=== PATIENT | male | born 1980 | race Caucasian/White ===

== ENCOUNTER 2024-02-16 15:27 | Outpatient (AMB) | payer OTHER, SELFPAY ==
--- NOTE | 2024-02-16 15:27 | A.OFFVIS_ITS ---
Vital Signs 02/16/24 15:34 Height 5 ft 6 in Weight 138 lb BMI 22.3 BP 109/69 Blood Pressure Location Rt brachial Position Sitting Pulse 64 Intake Visit Reasons: Unilateral Inguinal Hernia Intake Note: This patient was referred by [facility] care for an assessment for unilateral Inguinal Hernia. Patient c/o; Onset over 6 weeks, reports mild pain right groin, reports bulge, reports swelling. 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 He has noticed this reducible mass on his right groin on and off for about 8 weeks. He describes associated pain and discomfort. He says that the mass seems much bigger whenever his straining or doing a lot of exertion. The mass reduces on its own He denies GI complaints. [facility] Medical History (Updated 02/16/24 @ 15:58 by Jesús Brooks MD) Right inguinal hernia Surgical History No pertinent past surgical history Social History Alcohol intake: never Patient Tobacco Use Status: Never used Tobacco Review of Systems Const Denies chills and Denies fever(s) Card Denies chest pain, Denies dyspnea and Denies dyspnea on exertion Resp Denies cough, Denies dyspnea and Denies dyspnea on exertion GI Denies hematochezia and Denies change in bowel habits Denies hematuria and Denies difficulty urinating Musc Denies back pain and Denies limited range of motion Neuro Denies focal weakness and Denies convulsions Psych Denies depression and Denies mood swings Physical Exam Vital Signs: Last Vital Signs Pulse 64 02/16/24 15:34 BP 109/69 02/16/24 15:34 BMI result Body Mass Index 22.3 Const General: comfortable and no acute distress Orientation/consciousness: patient oriented x3 Neck Neck: Yes no lymphadenopathy Resp Auscultation: clear to auscultation bilaterally Cardio Rhythm: regular rhythm GI Other: Right inguinal hernia, seen with Valsalva, easily reducible Palpation (GI): Soft to palpation, nontender and no guarding Neuro General: patient oriented x3 Assessment & Plan Assessment & Plan (1) Right inguinal hernia: Code(s): K40.90 - Unilateral inguinal hernia, without obstruction or gangrene, not specified as recurrent Category: Medical Plan: He has a reducible right inguinal hernia. He describes symptoms with this and wants to proceed with repair. I had a long discussion with him about the technique of repair with mesh. I explained the risks including but not limited to bleeding, infection, injury to bowel, vas deferens and testicle, recurrence, postop pain, as well as the benefits and alternatives. I reviewed with him what to expect postoperatively He understands and wants to proceed. His was with him during the visit Coding Level of Care Code New Pt Level 3 (38222) Diagnoses Right inguinal hernia K40.90
[2024-02-16 15:34] VITALS: BP 109/69; PULSE 64; BMI 22.3
== END 2024-02-16 15:57 | disposition home or self-care (01) ==
PROVIDERS: Visit Provider Surgery
DX: K40.90 Unilateral inguinal hernia, without obstruction or gangrene, not specified as recurrent (principal)
CPT/HCPCS: 99204

== ENCOUNTER → 2024-02-16 15:27 | Outpatient (BNVA) | payer OTHER, SELFPAY | PROVIDERS: Visit Provider Surgery | DX: K40.90 Unilateral inguinal hernia, without obstruction or gangrene, not specified as recurrent (principal) | CPT/HCPCS: 99202 ==

== ENCOUNTER 2024-03-30 09:25 | Day surgery (SDC) | payer OTHER, SELFPAY ==
[2024-03-26 12:36] VITALS: BMI 22.3
--- NOTE | 2024-03-29 14:13 | HO.ANESPROP2 ---
Documented by User: Johanna Hayes NP 03/29/24 14:13 HPI - Anesthesia Eval Consult details Narrative: 44yo M for Right Repair Hernia Inguinal Reducible with mesh PMFSH Active Problems Active Problems: All Active Problems Right inguinal hernia (Acute) Past Medical History Medical History Right inguinal hernia Surgical History Surgical History Hx of inguinal hernia surgery H/O hand surgery Social History Social History Alcohol intake: never Patient Tobacco Use Status: Former Tobacco user Use of substances other than those prescribed or required for medical reasons: No Are you DNR?: No Advance Directives: No Advance Directives Information Provided: Yes Meds Allergies Allergy/AdvReac Type Severity Reaction Status Date / Time No Known Allergies Allergy Verified 02/16/24 15:37 Exam Height,Weight and Vital Signs: Height 5 ft 6 in Weight 62.596 kg Assessment and Plan Assessment Anesthesia Assessment: Chart Reviewed Documented by User: Georgie Jernigan MD 03/30/24 12:44 PMFSH Past Medical History Medical History Right inguinal hernia Family History Family history of problems with anesthesia: No Surgical History Surgical History Hx of inguinal hernia surgery H/O hand surgery History of Problems with Anesthesia: No Social History Social History Alcohol intake: never Patient Tobacco Use Status: Former Tobacco user Use of substances other than those prescribed or required for medical reasons: No Are you DNR?: No Advance Directives: No Advance Directives Information Provided: Yes Meds Allergies Allergy/AdvReac Type Severity Reaction Status Date / Time No Known Allergies Allergy Verified 02/16/24 15:37 Exam Airway Mallampati Class: II TM Dist: >3cm Neck ROM: Full Heart: rrr Lungs: cta Assessment and Plan Assessment Anesthesia Assessment: Anesthesia Plan Discussed Final Anesthetic Review Family History of Problems with Anesthesia: No History of Problems with Anesthesia: No NPO: Yes ASA Class: I Final Preanesthetic Review: No Changes in Pt Med Stat, Meds/Allgs Chart Reviewed, Consent Obtained/Reviewed and Anes Risks/Benef Reviewed Patient Risk: Low Procedure Risk: Low Anesthetic Plan Anesthetic Plan: GA Disposition: Standard PACU
[2024-03-30 09:48] VITALS: BMI 21.7
[2024-03-30 09:59] VITALS: BP 103/74; PULSE 58; RESP 16; TEMP 36.8; O2SAT 98
[2024-03-30] MEDS: Lactated Ringers 1,000 ML 100 ML IVCONT (10:15)
--- NOTE | 2024-03-30 12:06 | MHC.SHP ---
Pre-Procedural Eval Section A - 24 Hr Update-Section A only Date of Service: 03/30/24 Section B - Complete if H&P > 30 days Chief Complaint: Unilateral inguinal hernia, without obstruction Details of Present Illness: Reducible right inguinal hernia for more than 2 months Relevant Family History (Specify if Yes): No Present Medications: see Short Stay Collaborative assessment Medical History: No relevant PMH Allergies: Allergies Allergy/AdvReac Type Severity Reaction Status Date / Time No Known Allergies Allergy Verified 02/16/24 15:37 Review of Systems Sugical H&P ROS: Negative: Constitution, Cardiovascular, Respiratory, Neurological, Psychiatric, Hem-Onc, Allergic/Immunologic, Gastrointestinal, Genitourinary, Musculoskeletal, Integumentary, Endocrine and Eyes/Ears/Nose/Throat Exam Surgical H&P Exam: Normal: HEENT, Normal: Heart, Normal: Lungs, Normal: Extremities, Normal: Skin and Normal: Neurological and Significant Findings: Abdomen (Reducible right inguinal hernia) Plan Diagnosis/Plan: Unchanged I have reviewed the history and physical and performed a pertinent physical examination on my patient. No changes have occurred unless specified. Time Spent With Patient Time: Total time managing care of this patient today ____ minutes.
--- NOTE | 2024-03-30 13:22 | W.PM.OPN ---
Operative Note Operative Note Date of Service: 03/30/24 Narrative: Preop diagnosis: Right inguinal hernia, reducible Postop diagnosis: Right inguinal hernia, reducible, direct Procedure: Repair of a right inguinal hernia with mesh Surgeon: Jesús Brooks MD mobile unit assistant: WAGNER Perez The patient is a 44-year-old male with a reducible right inguinal hernia. He wanted to proceed with repair. He understood the technique of the procedure as well as the risks, benefits, and alternatives. He was brought to the operating room. He was placed supine under general anesthesia via laryngeal mask airway. The right groin was prepped and draped in the usual sterile fashion. A surgical time-out was done. The patient received cefazolin 2 g IV preoperatively I infiltrated the planned line of incision with lidocaine 1%. I made a short incision on the skin along an imaginary line from the anterior superior explained to the pubic ramus using blade 15. This was carried down through the full-thickness of the skin and subcutaneous fat until external oblique aponeurosis was visualized. I bluntly dissected the aponeurosis with gauze and visualize the external ring. This was further defined. I made an incision on the aponeurosis using blade 15. I extended this inferomedially to connect with the external ring. Hemostats were placed on the divided edges of the aponeurosis. I bluntly dissected the underside of the aponeurosis to create a pocket for the mesh. I then proceeded to do blunt dissection of the spermatic cord and its contents with my finger until was able to pass a Merline drain around this. The Westpoint drain was used for retraction. Examination of the spermatic cord did not reveal any sac nor any defect in the internal ring. However, was there was note of a defect with the hernia sac on the floor of the canal. This was very for consistent with a direct hernia. I further define this. I reinforced this floor with a medium-sized Prolene plug. The plug was secured to the shelving edge of the inguinal meant laterally, the internal oblique superiorly medially using the inner leaves of the plug with Prolene 2 sutures I then reinforced the entire floor of the canal with a keyhole mesh. The tails of the mesh were passed around the cord at the level of the internal and were secured together with Prolene 2 sutures. I secured the mesh to the pubic ramus inferomedially, the shelving edge of the inguinal ligament laterally and the internal oblique medially. I then irrigated. I then closed the external oblique aponeurosis with a running Polysorb 2-0 stitch to re-create the external ring There was note of good hemostasis. The subcutaneous layer was reapposed with Polysorb 3-0 interrupted sutures. Skin closure was achieved with Polysorb 4-0 subcuticular running stitch. The area was infiltrated with Marcaine 0.5% for postop analgesia. Dressings were applied. The procedure was completed. The patient tolerated the procedure well. There were no immediate complications. Initial and final counts of sponges and instruments were correct. Estimated blood loss was less than 20 cc. The patient was extubated without difficulty and transferred to the recovery room with stable vital signs.
[2024-03-30 13:44] VITALS: BP 110/74; PULSE 56; RESP 12; TEMP 36.2; O2SAT 99
[2024-03-30 13:49] VITALS: BP 106/70; PULSE 57; RESP 12; O2SAT 98
[2024-03-30 13:54] VITALS: BP 108/70; PULSE 58; RESP 16; O2SAT 98
[2024-03-30 13:59] VITALS: BP 100/68; PULSE 58; RESP 16; O2SAT 97
[2024-03-30 14:13] VITALS: BP 97/68; PULSE 56; RESP 16; O2SAT 99
== END 2024-03-30 14:54 | disposition home or self-care (01) ==
PROVIDERS: Visit Provider Surgery
PROC: (CPT 49505; principal; 2024-03-30 11:30)
DX: K40.90 Unilateral inguinal hernia, without obstruction or gangrene, not specified as recurrent (principal); Z98.890 Other specified postprocedural states; Z79.899 Other long term (current) drug therapy; Z87.891 Personal history of nicotine dependence; Z96.1 Presence of intraocular lens
CPT/HCPCS: 49505; C1781; J0131; J0690; J1100; J2250; J2405; J2704; J2795; J3010

== ENCOUNTER → 2024-03-30 09:25 | Outpatient (BNV) | payer OTHER, SELFPAY | PROVIDERS: Visit Provider Surgery | DX: K40.90 Unilateral inguinal hernia, without obstruction or gangrene, not specified as recurrent (principal) | CPT/HCPCS: 49505 ==

== ENCOUNTER 2024-04-12 12:43 | Outpatient (AMB) | payer OTHER, SELFPAY ==
--- NOTE | 2024-04-12 12:45 | A.OFFVIS_ITS ---
Vital Signs 04/12/24 12:52 Height 5 ft 6 in Weight 134 lb 6 oz BMI 21.7 BP 111/74 Blood Pressure Location Lt brachial Position Sitting Pulse 67 Intake Visit Reasons: S/P RIH w/mesh Intake Note: This patient presents for a post-op assessment status post repair of right inguinal hernia. Pt c/o; healing as expected, feel a small bump in the area, denies redness, discharge, constipation. Eating well Surgery date: 03/30/2024 [employer] Functional Analyst Required: No Accompanied by: Family/Other Allergies No Known Allergies Allergy (Verified 04/12/24 12:50) HPI HPI S/P RIH w/mesh: Details: He underwent repair of right inguinal hernia with mesh last 03/30/2024. He tolerated procedure well. He says he is doing well at home. He did admit that he had a sneezing fit about a day after his procedure and had significant pain after that. He feels well today and says he does not take narcotics anymore. [facility] Medical History Right inguinal hernia Surgical History Hx of inguinal hernia surgery H/O hand surgery Social History Alcohol intake: never Patient Tobacco Use Status: Former Tobacco user Review of Systems Const Denies chills and Denies fever(s) Card Denies chest pain, Denies dyspnea and Denies dyspnea on exertion Resp Denies cough, Denies dyspnea and Denies dyspnea on exertion GI Denies hematochezia and Denies change in bowel habits Denies hematuria and Denies difficulty urinating Musc Denies back pain and Denies limited range of motion Neuro Denies focal weakness and Denies convulsions Psych Denies depression and Denies mood swings Physical Exam Vital Signs: Last Vital Signs Pulse 67 04/12/24 12:52 BP 111/74 04/12/24 12:52 BMI result Body Mass Index 21.7 Const General: comfortable and no acute distress Resp Effort & Inspection: normal respiratory effort GI Other: Right inguinal hernia repair site clean, well healed, some edema but repair site intact, no infection Assessment & Plan Assessment & Plan (1) Right inguinal hernia: Code(s): K40.90 - Unilateral inguinal hernia, without obstruction or gangrene, not specified as recurrent Category: Medical Plan: Status post repair with mesh. He is doing very well. His incision is well healed. The repair site is intact. I advised him to avoid lifting anything more than 20 lb for at least 2 more weeks. He can follow up on a p.r.n. basis. Coding Level of Care Code Global (05126) Diagnoses Right inguinal hernia K40.90
[2024-04-12 12:52] VITALS: BP 111/74; PULSE 67; BMI 21.7
== END 2024-04-12 13:11 | disposition home or self-care (01) ==
PROVIDERS: Visit Provider Surgery
DX: K40.90 Unilateral inguinal hernia, without obstruction or gangrene, not specified as recurrent (principal)
CPT/HCPCS: 99024

== ENCOUNTER → 2024-04-12 12:43 | Outpatient (BNVA) | payer OTHER, SELFPAY | PROVIDERS: Visit Provider Surgery | DX: Z09 Encounter for follow-up examination after completed treatment for conditions other than malignant neoplasm (principal); Z87.19 Personal history of other diseases of the digestive system | CPT/HCPCS: 99212 ==